=== PATIENT | male | born 1965 | race African-American/Black ===

== ENCOUNTER → 2024-07-14 11:27 | Outpatient (REF) | payer OTHER, SELFPAY ==
[2024-07-16 11:26] LABS: Quantiferon Mitogen minus NIL 7.15 IU/mL; Quantiferon NIL 0.04 IU/mL; Quantiferon Plus TB1 minus NIL 0.01 IU/mL (<=0.34); Quantiferon Plus TB2 minus NIL 0.03 IU/mL (<=0.34); Quantiferon TB Gold Plus Negative (Negative)
[2024-07-16 16:49] LABS: Varicella Zoster IgG (VZV) Positive
== END ==
LOC: OHS 11:27
PROVIDERS: ATTENDING PHYSICIAN Nurse Practitioner Family
DX: Z23 Encounter for immunization (principal)
CPT/HCPCS: 36415; 86480; 86787